=== PATIENT | male | born 1985 | race Caucasian/White ===

== ENCOUNTER → 2017-04-08 | Emergency (ER) | payer OTHER ==
[~2017-04-08] VITALS: Ht 170.2 cm; Wt 142.4 kg
[~2017-04-08] MED LIST: GLUCOPHAGE XR500 MG; SKELAXIN800 MG PO; ULTRAM50 MG PO
== END | disposition home or self-care (01) ==
LOC: ER 03:59
DX: S43.492A Other sprain of left shoulder joint, initial encounter (principal); S33.5XXA Sprain of ligaments of lumbar spine, initial encounter; V43.02XA Car driver injured in collision with other type car in nontraffic accident, initial encounter; Y93.89 Activity, other specified; Y92.488 Other paved roadways as the place of occurrence of the external cause; Y99.8 Other external cause status